=== PATIENT | female | born 1990 | race Caucasian/White ===

== ENCOUNTER 2019-07-13 22:09 | Emergency (ER) | payer SELFPAY ==
[~2019-07-13] VITALS: Ht 170.2 cm; Wt 108.0 kg
[~2019-07-13 22:09] MED LIST: SULF1TAB24 PO
--- NOTE | 2019-07-13 22:27 | PHYS DOC ---
Past History Past Medical History: Anxiety, Arthritis, Bipolar, IBS Past Surgical History: Other Past Surgical History Multiple knee surgery- bilateral Smoking: Cigarettes Alcohol Use: Occasionally Drug Use: Marijuana Adult General Chief Complaint Chief Complaint: ".. I ve had bad knees... since I was 15 .. and had them i njuried... I ve had multiple surgies on them.. I don't have my braces any more.. and they are really brothering me this weekend... "".. sometime it feels like I gat something in the knees .. that cause them to lock.. usually I can work it out..." HPI HPI Patient is a 28 year old female who presents with above hx and complaint of bilateral knee pain and crepitation. Patient presents with her dog Christy. ( Anxiety-partner). Patient gives a history of chronic knee problems due to the trauma and requiring knee multiple knee surgery's. Onset of the knee problems started at age 15. No recent travel. Has recent moved into [facility]. Has been taking ibuprofen for her pain. Patient states she's had marked increase of crepitation and pain in both knees. Patient can do bilateral straight leg lifts. No marked erythema. Mild bilateral edema but no ballottement. Does have crepitation bi lateral or ROM. Has bilateral old surgery scars to knees. Pain to day seemed to be localized to collateral ligaments in both knees. Distal neurovascular intact. Pt. denies any specific recent injury, but state she frequent has pain with over use or on miss step or twisting movements to knees. Pt. denies any fever. Patient denies any immunosuppression. No history of vaginal discharge or dysuria. Review of Systems Review of Systems Constitutional: Denies fever or chills [] Eyes: Denies change in visual acuity, redness, or eye pain [] HENT: Denies nasal congestion or sore throat [] Respiratory: Denies cough or shortness of breath [] Cardiovascular: No additional information not addressed in HPI [] GI: Denies abdominal pain, nausea, vomiting, bloody stools or diarrhea [] : Denies dysuria or hematuria [] Musculoskeletal: Patient complains of bilateral knee pain Integument: Denies rash or skin lesions [] Neurologic: Denies headache, focal weakness or sensory changes [] Endocrine: Denies polyuria or polydipsia [] All other systems were reviewed and found to be within normal limits, except as documented in this note. Family History Family History Noncontributory Current Medications Current Medications See nursing for home medications Allergies Allergies Allergies Coded Allergies Type Severity Reaction Last Updated Verified No Known Drug Allergies 04/07/15 No Physical Exam Physical Exam Constitutional: Mild to moderate acute distress, non-toxic appearance. [] HENT: Normocephalic, atraumatic, bilateral external ears normal, oropharynx moist, no oral exudates, nose normal. Tattoos above left eyebrow Eyes: PERRLA, EOMI, conjunctiva normal, no discharge. [] Neck: Normal range of motion, no tenderness, supple, no stridor. [] Cardiovascular:Heart rate regular rhythm, no murmur [] Lungs & Thorax: Bilateral breath sounds equal at apexes with a few scattered wheezes on auscultation [] Abdomen: Bowel sounds normal, soft, no tenderness, no masses, no pulsatile masses. [] Skin: Warm, dry, no erythema, no rash. []Multiple tattoos. Back: No tenderness, no CVA tenderness. [] Extremities: No tenderness, no cyanosis, no clubbing, ROM intact, no edema. [] Except findings of bilateral knee pain and crepitation as per history of present illness Neurologic: Alert and oriented X 3, moves all extremities on request, distal sensory present, no focal deficits noted. [] Psychologic: Affect very anxious, judgement normal, mood normal. [] EKG EKG [] Radiology/Procedures Radiology/Procedures [][place] [address] IMAGING REPORT Signed PATIENT: ODILIA WILKINSON ACCOUNT: [id number] : 1990 LOCATION: ER AGE: 28 SEX: F EXAM STATUS: PRE ER ORD. PHYSICIAN: KENNETH BAEZA MD REASON: pain, CHRONIC - WORSE TODAY, NO NEW INJURY PROCEDURE: KNEE BILAT 4V EXAM: AP, oblique, lateral and tangential patellar views of both knees DATE: 07/13/2019 10:27 PM INDICATION: pain, CHRONIC - WORSE TODAY, NO NEW INJURY COMPARISON: 12/10/2015 FINDINGS: Right knee: Joint spaces are preserved although tricompartmental osteophytes are seen. No right knee joint effusion. Mild ossification within the distal patellar tendon may be seen with remote [place]-Schlatter's disease. Neutral patellar tracking. Multi partite appearance of the right patella. Left knee: Trace medial compartment joint space narrowing with tricompartmental osteophytes. No knee joint effusion. Neutral patellar tracking. No evidence of acute fracture or dislocation. IMPRESSION: 1. Bilateral knee joint osteoarthritis. 2. No evidence of acute fracture or dislocation. 3. No knee joint effusion. Electronically signed by: Anibal Cooper MD (07/13/2019 11:53 PM) [facility] DICTATED AND SIGNED BY: ANIBAL COOPER MD DATE: 07/13/19 7642 CC: KENNETH BAEZA MD; PCP,GAYE ~ Course & Med Decision Making Course & Med Decision Making Pertinent Labs and Imaging studies reviewed. (See chart for details) Distal Neuro vascular intact post Rodney wraps. Pt. to wear rodney wraps. Take Tylenol and ibuprofen as needed for pain. Use ice as needed next 3 days or after any acute injury. Patient follow-up with orthopedics. May need formal bilateral knee braces for collateral ligament stabilization. May eventually need generalized knee replacement or arthroscopic eval. for fragments causing the knee to lock. Reviewed x-rays with patient from 2015 and x-ray studies tonight. No acute fractures appreciated. Does have small avulsion fracture fragments. Patient must follow-up primary care . . Impression: 1. Bilateral Knee Pain- DJD, -Tricompartmental Osteophytes, Osteoarthritis, Old Avulsion Fx- Fragments 2. Anxiety Disorder 3. Collateral Ligament pain- ? Strain Dragon Disclaimer Dragon Disclaimer This electronic medical record was generated, in whole or in part, using a voice recognition dictation system. Departure Departure: Disposition: 01 HOME/RESIDENCE PRIOR TO ADM Condition: STABLE Referrals: PCP,GAYE (PCP) Bethanie Disclaimer This chart was dictated in whole or in part using Voice Recognition software in a busy, high-work load, and often noisy Emergency Department environment. It may contain unintended and wholly unrecognized errors or omissions. Dragon Disclaimer This chart was dictated in whole or in part using Voice Recognition software in a busy, high-work load, and often noisy Emergency Department environment. It may contain unintended and wholly unrecognized errors or omissions. KENNETH BAEZA MD Jul 13, 2019 22:26
[2019-07-13 22:59] LABS: BARBITURATES NEG (NEG); BENZODIAZEPINES NEG (NEG); CANNABINOIDS NEG (NEG); COCAINE NEG (NEG); METHADONE NEG (NEG); OPIATES NEG (NEG); PHENCYCLIDINE NEG (NEG)
[2019-07-13 23:01] LABS: AMPHETAMINE/METHAMPHETAMINE NEG (NEG)
[2019-07-13 23:08] LABS: BILIRUBIN,URINE NEG (NEG); CLARITY,URINE HAZY; COLOR,URINE YELLOW; GLUCOSE,URINE NEG (NEG)
[2019-07-13 23:09] LABS: BACTERIA,URINE 0 /HPF (0-FEW); NITRITE,URINE NEG (NEG); RBC,URINE OCC /HPF (0-2); SQUAMOUS EPITHELIAL CELL,UR MOD /LPF; UROBILINOGEN,URINE 0.2 mg/dL (0.2 mg/dL); WBC,URINE 0 /HPF (0-4)
[2019-07-13] MEDS ORDERED: KETOROLAC 60 MG/2 ML VIAL. IM ONE (23:15)
[2019-07-13] MEDS ORDERED: cloNIDine TTS-2 1 PATCH PATCH TD ONE (23:45)
[2019-07-13] MEDS ORDERED: cloNIDine HCL 0.1 MG TABLET PO ONE (23:45)
--- NOTE | 2019-07-13 23:56 | RAD ---
EXAM: AP, oblique, lateral and tangential patellar views of both knees DATE: 07/13/2019 10:27 PM INDICATION: pain, CHRONIC - WORSE TODAY, NO NEW INJURY COMPARISON: 12/10/2015 FINDINGS: Right knee: Joint spaces are preserved although tricompartmental osteophytes are seen. No right knee joint effusion. Mild ossification within the distal patellar tendon may be seen with remote [place]-Schlatter's disease. Neutral patellar tracking. Multi partite appearance of the right patella. Left knee: Trace medial compartment joint space narrowing with tricompartmental osteophytes. No knee joint effusion. Neutral patellar tracking. No evidence of acute fracture or dislocation. IMPRESSION: 1. Bilateral knee joint osteoarthritis. 2. No evidence of acute fracture or dislocation. 3. No knee joint effusion. Electronically signed by: Anibal Cooper MD (07/13/2019 11:53 PM) [facility]
[2019-07-14 00:45] VITALS: BP 158/93
== END 2019-07-14 00:30 | disposition home or self-care (01) ==
LOC: ER 22:09
DX: M17.0 Bilateral primary osteoarthritis of knee (principal); M25.762 Osteophyte, left knee; M25.761 Osteophyte, right knee; F41.9 Anxiety disorder, unspecified; F17.210 Nicotine dependence, cigarettes, uncomplicated; Z98.890 Other specified postprocedural states
CPT/HCPCS: 36415; 73564; 80307; 81001; 81025; 96372; 99285; J1885

== ENCOUNTER → 2020-06-08 | Outpatient (CLI) | payer OTHER ==
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
== END ==
LOC: DXRAD 09:30
PROVIDERS: ATTEND Family Medicine
DX: M47.816 Spondylosis without myelopathy or radiculopathy, lumbar region (principal); M48.54XA Collapsed vertebra, not elsewhere classified, thoracic region, initial encounter for fracture; M40.46 Postural lordosis, lumbar region
CPT/HCPCS: 72100

== ENCOUNTER 2020-09-05 21:52 | Emergency (ER) | payer SELFPAY ==
[~2020-09-05] VITALS: Ht 170.2 cm; Wt 103.5 kg
--- NOTE | 2020-09-05 21:54 | PHYS DOC ---
Past History Past Medical History: Anxiety, Arthritis, Bipolar, IBS Additional Past Medical Histor: chronic lower leg weakness and pain-marino Past Surgical History: Other Additional Past Surgical Histo: marino leg surgeries 5 on the rt and 2 on the lt Smoking: Cigarettes Alcohol Use: None Drug Use: None General Adult HPI: HPI: " .. I got a sore throat.. I hurt all over.. My bones hurt... my muscles hurt ... My neck hurts ... My chest hurts ... I hurt all over ....I had some bleeding in my urine.. I am just not right today.." Patient is a 29 year old female who presents with above hx and complaints diffuse body myalgia, arthralgia, malaise, pharyngitis, and hematuria. Patient advises she did not get a flu shot this season. Denies any specific Covid contacts. Patient denies any history of immunosuppression. Patient in the past did IV heroin and other polysubstance abuse. Patient currently smokes marijuana every day for pain relief. Patient does use tobacco. Patient denies any recent trauma. No recent travel outside the [facility]. Does not follow-up with primary care. [id number] meds not helpful for generalized body pain. Denies.Intake bad food. Patient does have a history of IBS. Does have a history of gait disorder because of lower leg weakness in the past. Patient denies HIV or immunosuppression. Patient has an excess of 25 lifetime sex partners. Has had STDs before which were treated. Patient has had d ysfunctional uterine bleeding with very irregular periods. Patient denies history of . No history of kidney stones with her family members. No history of colitis with her family members. Review of Systems: Review of Systems: Constitutional: Denies fever or chills Eyes: Denies change in visual acuity HENT: Complains of sore neck and sore throat Respiratory: History of a nonproductive cough Cardiovascular: History of chest wall pain GI: Complains of generalized abdominal pain, nausea,. Denies vomiting, bloody stools or diarrhea : Denies dysuria Musculoskeletal: Complains of generalized muscle and bone pain Integument: Denies rash Neurologic: Denies headache, focal weakness or sensory changes Endocrine: Denies polyuria or polydipsia Lymphatic: Denies swollen glands Psychiatric: Does have a history of depression and anxiety. No suicidal ideation or homicidal ideation reported. Family History: Family History: Noncontributory to presentation. Current Medications: Current Meds: See nursing for home meds Allergies: Allergies: Allergies Coded Allergies Type Severity Reaction Last Updated Verified No Known Drug Allergies 04/07/15 No Physical Exam: PE: Constitutional: Moderate acute distress, non-toxic appearance. [] HENT: Normocephalic, atraumatic, bilateral external ears normal, oropharynx moist, no oral exudates, nose normal. Tattoo above left eyebrow Eyes: PERRLA, EOMI, conjunctiva normal, no discharge. [] Neck: Normal range of motion, no tenderness, supple, no stridor. [] Cardiovascular: Tachycardia heart rate regular rhythm, no murmur [] Lungs & Thorax: Bilateral breath sounds equal apex with scattered wheezes on auscultation [] Abdomen: Bowel sounds normal, soft, no tenderness, no masses, no pulsatile masses. Distended abd. Skin: Warm, dry, no erythema, no rash. Multiple tattoos Back: No tenderness, no CVA tenderness. [] Extremities: No tenderness, no cyanosis, no clubbing, ROM intact, no edema. [] Neurologic: Alert and oriented X 3, normal motor function, normal sensory function, no focal deficits noted. [] Psychologic: Affect anxious, judgement normal, mood normal. [] EKG: EKG: My interpretation EKG shows a sinus rhythm at 87 bpm there is slightly prolonged MA interval of 212 ms. No findings acute STEMI of contralateral changes. [] Radiology/Procedures: Radiology/Procedures: [][address] [address] IMAGING REPORT Signed PATIENT: ODILIA WILKINSON ACCOUNT: [id number] : 1990 LOCATION: ER AGE: 29 SEX: F EXAM STATUS: REG ER ORD. PHYSICIAN: KENNETH BAEZA MD REASON: Painful urination, abdomen pain, neck soreness PROCEDURE: ACUTE ABDOMEN SERIES Acute Abdominal Series: Technique: PA view of the chest and supine and upright views of the abdomen were obtained. History: Pain. Comparison: None. Findings: The lungs and pleural margins are clear. There is air and stool scattered throughout the colon. There is a paucity small bowel gas. There is no free air. Impression: Nonobstructive bowel gas pattern consistent with constipation. Electronically signed by: Manish Thomas III, MD (09/05/2020 11:09 PM) [facility] DICTATED AND SIGNED BY: MANISH THOMAS III, MD DATE: 09/05/20 8888 CC: KENNETH BAEZA MD; PCP,NO ~MTH0 0 Heart Score: HEART Score for Chest Pain: HEART Score for Chest Pain Response (Comments) Value History Slighlty/Non-Suspicious 0 ECG Normal 0 Age < 45 0 Risk Factors 1 or 2 Risk Factors 1 Troponin >1-<3x Normal Limit 1 Total 2 Risk Factors: Risk Factors: DM, Current or recent (<one month) smoker, HTN, HLP, family history of CAD, obesity. Risk Scores: Score 0 - 3: 2.5% MACE over next 6 weeks - Discharge Home Score 4 - 6: 20.3% MACE over next 6 weeks - Admit for Clinical Observation Score 7 - 10: 72.7% MACE over next 6 weeks - Early Invasive Strategies Course & Med Decision Making: Course & Med Decision Making Pertinent Labs and Imaging studies reviewed. (See chart for details) Patient push fluids. Fish times he drinks. Take Keflex 500 g three times a day. Follow-up urine cultures. Encourage patient to avoid tobacco polysubstance abuse. Patient follow-up primary care. Patient turning concerns. Patient to expect a loose stool by morning with the milk of mag. Consider self-isolation. Wear a mask that covers her nose and mouth anytime away from home. Consider testing for Covid ( currently refuses test). Follow-up pending cultures. Follow-up pending labs. Return if any concerns. Impression: 1. Generalized body pain myalgia, arthralgia 2. Constipation 3. Viral syndrome 4. Tobacco, methamphetamine and marijuana use 5. Mild leukocytosis 11.4 6. Elevated AST 40 7. UTI 8. Viral pharyngitis [] Dragon Disclaimer: Dragon Disclaimer: This electronic medical record was generated, in whole or in part, using a voice recognition dictation system. Departure Departure: Referrals: PCP,GAYE (PCP) Scripts Cephalexin (KEFLEX) 750 Mg Capsule 500 MG PO TID for uti,cystitis for 10 Days, #20 CAP Prov: KENNETH BAEZA MD 09/06/20 Bethanie Disclaimer This chart was dictated in whole or in part using Voice Recognition software in a busy, high-work load, and often noisy Emergency Department environment. It may contain unintended and wholly unrecognized errors or omissions. KENNETH BAEZA MD Sep 05, 2020 21:54
[2020-09-05] MEDS ORDERED: predniSONE 10 MG TABLET PO ONE (22:00)
[2020-09-05] MEDS ORDERED: IV RINGERS SOLUTION,LACTATED 1,000 ML IV SCH (22:45)
[2020-09-05] MEDS ORDERED: FAMOTIDINE 20 MG/2 ML VIAL IVP ONE (22:45)
[2020-09-05] MEDS ORDERED: KETOROLAC 30 MG/ML VIAL. IVP ONE (22:45)
[2020-09-05] MEDS ORDERED: ONDANSETRON PF 4 MG/2 ML VIAL. IVP ONE (22:45)
--- NOTE | 2020-09-05 23:11 | RAD ---
Acute Abdominal Series: Technique: PA view of the chest and supine and upright views of the abdomen were obtained. History: Pain. Comparison: None. Findings: The lungs and pleural margins are clear. There is air and stool scattered throughout the colon. There is a paucity small bowel gas. There is no free air. Impression: Nonobstructive bowel gas pattern consistent with constipation. Electronically signed by: Tristan Jasmine III, MD (09/05/2020 11:09 PM) [facility]
--- NOTE | 2020-09-05 23:16 | EKG ---
[address] [address] Test Date: 2020-09-05 Test Time: 22:49:06 Pat Name: ODILIA WILKINSON Department: Room: Gender: F Timber Deadener: : 1990 Requested By: KENNETH BAEZA Order Number: [id number] Reading MD: Measurements Intervals [place] Rate: 87 P: 34 NM: 212 QRS: 62 QRSD: 96 T: 43 QT: 360 QTc: 434 Interpretive Statements SINUS RHYTHM PROLONGED NM INTERVAL ABNORMAL ECG RI6.02 No previous ECG available for comparison
[2020-09-05 23:30] LABS: BILIRUBIN,URINE NEG (NEG); CLARITY,URINE CLOUDY; COLOR,URINE YELLOW; GLUCOSE,URINE NEG (NEG); UROBILINOGEN,URINE 0.2 mg/dL (0.2 mg/dL)
[2020-09-05 23:31] LABS: AMORPHOUS SEDIMENT,UR PRESENT /HPF; BACTERIA,URINE MOD /HPF (0-FEW); NITRITE,URINE NEG (NEG); RBC,URINE 20-40 /HPF (0-2); SQUAMOUS EPITHELIAL CELL,UR FEW /LPF
[2020-09-05 23:34] LABS: INFLUENZA A PATIENT NEGATIVE (NEGATIVE); INFLUENZA B PATIENT NEGATIVE (NEGATIVE)
[2020-09-05 23:43] LABS: BARBITURATES NEG (NEG); BENZODIAZEPINES NEG (NEG); CANNABINOIDS POS (NEG); COCAINE NEG (NEG); METHADONE NEG (NEG); OPIATES NEG (NEG); PHENCYCLIDINE NEG (NEG)
[2020-09-05 23:47] LABS: AMPHETAMINE/METHAMPHETAMINE POS (NEG)
[2020-09-05 23:52] LABS: CALCIUM 8.9 mg/dL (8.5-10.1); CREATININE 0.7 mg/dL (0.6-1.0); GFR 98.3
[2020-09-05 23:59] LABS: ALBUMIN 3.7 g/dL (3.4-5.0); BASO % 0 % (0-3); C REACTIVE PROTEIN 17.1 mg/L (0-3.3); DIRECT BILIRUBIN 0.2 mg/dL (0.0-0.2); EOS # 0.3 x10^3/uL (0.0-0.7); EOS % 3 % (0-3); HEMATOCRIT 44.3 % (36.0-47.0); LYMPH # 2.5 x10^3/uL (1.0-4.8); LYMPH % 22 % (24-48); MEAN CORPUSCULAR HEMOGLOBIN 30 pg (25-35); MEAN CORPUSCULAR HGB CONC 34 g/dL (31-37); MEAN CORPUSCULAR VOLUME 88 fL (79-100); MONO % 8 % (0-9); NEUT # 7.6 x10^3uL (1.8-7.7); NEUT % 67 % (31-73); PLATELET COUNT 228 x10^3/uL (140-400); RED BLOOD COUNT 5.04 x10^6/uL (3.50-5.40); RED CELL DISTRIBUTION WIDTH 13.5 % (11.5-14.5); TOTAL BILIRUBIN 0.6 mg/dL (0.2-1.0); TOTAL PROTEIN 7.6 g/dL (6.4-8.2); WHITE BLOOD COUNT 11.4 x10^3/uL (4.0-11.0)
[2020-09-06] MEDS ORDERED: MAGNESIUM HYDROXIDE 2,400 MG/30 ML ORAL.SUSP. ONE (00:15)
[2020-09-06] MEDS ORDERED: IV NORMAL SALINE 50ML 50 ML ONE (00:15)
[2020-09-06] MEDS ORDERED: MAGNESIUM HYDROXIDE 2,400 MG/30 ML ORAL.SUSP. PO ONE (00:15)
[2020-09-06] MEDS ORDERED: cefTRIAXone SODIUM 1 GM VIAL ONE (00:16)
[2020-09-06] MEDS ORDERED: CEPH750C9 PO (00:17)
[2020-09-06 00:20] VITALS: BP 148/90
== END 2020-09-06 00:30 | disposition home or self-care (01) ==
LOC: ER 21:52
DX: N39.0 Urinary tract infection, site not specified (principal); J02.8 Acute pharyngitis due to other specified organisms; K59.00 Constipation, unspecified; R10.84 Generalized abdominal pain; B34.9 Viral infection, unspecified; R79.89 Other specified abnormal findings of blood chemistry; F12.90 Cannabis use, unspecified, uncomplicated; F41.9 Anxiety disorder, unspecified; M19.90 Unspecified osteoarthritis, unspecified site; F31.9 Bipolar disorder, unspecified; F17.210 Nicotine dependence, cigarettes, uncomplicated; Z98.890 Other specified postprocedural states
CPT/HCPCS: 36415; 74022; 80048; 80076; 80307; 81001; 82150; 82550; 83690; 84484; 85025; 85610; 85730; 86140; 87070; 87086; 87491; 87591; 87804; 87880; 93005; 96361; 96374; 96375; 99285; J0696; J1885; J2405; J3490; J7120; J7512

== ENCOUNTER 2021-03-03 02:48 | Emergency (ER) | payer SELFPAY ==
[~2021-03-03] VITALS: Ht 170.2 cm; Wt 99.8 kg
[~2021-03-03 02:48] MED LIST changes: +CEPH750C9 PO
[2021-03-03] MEDS ORDERED: CEPH500C PO (03:14)
--- NOTE | 2021-03-03 03:15 | PHYS DOC ---
Past History Past Medical History: Anxiety, Arthritis, Bipolar, Hypertension, IBS Additional Past Medical Histor: chronic lower leg weakness and pain-marino Past Medical History PCOS Past Surgical History: Other Additional Past Surgical Histo: marino leg surgeries 5 on the rt and 2 on the lt Smoking: Cigarettes Alcohol Use: None Drug Use: Opiates General Adult EDM: Chief Complaint: DRUG ABUSE HPI: HPI: Patient is a [age] year old [sex] who presents with [] Review of Systems: Review of Systems: Constitutional: Denies fever or chills Eyes: Denies change in visual acuity HENT: Denies nasal congestion or sore throat Respiratory: Denies cough or shortness of breath Cardiovascular: Denies chest pain or edema GI: Denies abdominal pain, nausea, vomiting, bloody stools or diarrhea : Denies dysuria Musculoskeletal: Denies back pain or joint pain Integument: Denies rash Neurologic: Denies headache, focal weakness or sensory changes Endocrine: Denies polyuria or polydipsia Lymphatic: Denies swollen glands Psychiatric: Denies depression or anxiety Allergies: Allergies: Allergies Coded Allergies Type Severity Reaction Last Updated Verified No Known Drug Allergies 04/07/15 No Physical Exam: PE: Constitutional: Well developed, well nourished, no acute distress, non-toxic appearance. [] HENT: Normocephalic, atraumatic, bilateral external ears normal, oropharynx moist, no oral exudates, nose normal. [] Eyes: PERRLA, EOMI, conjunctiva normal, no discharge. [] Neck: Normal range of motion, no tenderness, supple, no stridor. [] Cardiovascular:Heart rate regular rhythm, no murmur [] Lungs & Thorax: Bilateral breath sounds clear to auscultation [] Abdomen: Bowel sounds normal, soft, no tenderness, no masses, no pulsatile masses. [] Skin: Warm, dry, no erythema, no rash. [] Back: No tenderness, no CVA tenderness. [] Extremities: No tenderness, no cyanosis, no clubbing, ROM intact, no edema. [] Neurologic: Alert and oriented X 3, normal motor function, normal sensory function, no focal deficits noted. [] Psychologic: Affect normal, judgement normal, mood normal. [] Current Patient Data: Vital Signs: Vital Signs Date Time Temp Pulse Resp B/P (MAP) Pulse Ox O2 Delivery O2 Flow Rate FiO2 7/21/21 02:51 98.5 90 20 171/122 (138) 100 Room Air EKG: EKG: [] Radiology/Procedures: Radiology/Procedures: [] Heart Score: Risk Factors: Risk Factors: DM, Current or recent (<one month) smoker, HTN, HLP, family history of CAD, obesity. Risk Scores: Score 0 - 3: 2.5% MACE over next 6 weeks - Discharge Home Score 4 - 6: 20.3% MACE over next 6 weeks - Admit for Clinical Observation Score 7 - 10: 72.7% MACE over next 6 weeks - Early Invasive Strategies Course & Med Decision Making: Course & Med Decision Making Pertinent Labs and Imaging studies reviewed. (See chart for details) [] Dragon Disclaimer: Dragon Disclaimer: This electronic medical record was generated, in whole or in part, using a voice recognition dictation system. Departure Departure: Impression: Primary Impression: Heroin abuse Additional Impression: Injection site extravasation Qualified Codes: T80.818A - Extravasation of other vesicant agent, initial encounter Disposition: HOME / SELF CARE / HOMELESS Condition: STABLE Referrals: PCP,NO (PCP) Patient Instructions: Alcohol and Drug Addiction, Finding Treatment, Drug Abuse, FAQs, Elastic Bandage and RICE, Infiltration, IV, [id number] Additional Instructions: Clean wound daily with soap and water. Change dressing 2 times daily. Use over the counter antibiotic ointment with each dressing change. Use over the count er Tylenol and/or Ibuprofen for pain or discomfort. Ice area 20 minutes on then leave off next 20 minutes. May repeat several times daily for the next few days. Take antibiotics prescribed to completion. Scripts Cephalexin (CEPHALEXIN) 500 Mg Capsule 1 CAP PO TID for Cellulitis for 7 Days, #21 CAP Prov: NICHO AUGUSTE DO 03/03/21 NICHO AUGUSTE DO Mar 03, 2021 03:15
[2021-03-03 03:16] VITALS: BP 172/107
[2021-03-03] MEDS ORDERED: NEOMY/BACITR/POLYMYXIN OINT PACKET. TP ONE (03:30)
[2021-03-03] MEDS ORDERED: CEPHALEXIN 250 MG CAPSULE PO ONE (03:30)
== END 2021-03-03 03:32 | disposition home or self-care (01) ==
LOC: ER 02:48
DX: T80.818A Extravasation of other vesicant agent, initial encounter (principal); F11.10 Opioid abuse, uncomplicated; F41.9 Anxiety disorder, unspecified; M19.90 Unspecified osteoarthritis, unspecified site; F31.9 Bipolar disorder, unspecified; I10 Essential (primary) hypertension; K58.9 Irritable bowel syndrome, unspecified; F17.210 Nicotine dependence, cigarettes, uncomplicated
CPT/HCPCS: 99283

== ENCOUNTER 2021-06-05 19:47 | Inpatient (IN) | payer SELFPAY ==
[~2021-06-05] VITALS: Ht 170.2 cm; Wt 94.0 kg
[~2021-06-05 19:47] MED LIST changes: +CEPH500C PO
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
[2021-06-05] MEDS ORDERED: VANCOMYCIN 1 GM in IV NORMAL SALINE 250ML 250 ML IV ONE (22:15)
--- NOTE | 2021-06-05 22:47 | RAD ---
EXAM: AP and lateral views left forearm DATE: 06/05/2021 10:19 PM INDICATION: Reason: cellulitis , hx of iv drug use / Spl. Instructions: Pt shielded / History: . COMPARISON: No Prior FINDINGS/ IMPRESSION: Marked soft tissue swelling about the left forearm and elbow without acute fracture or dislocation. N o definite retained radiopaque body. Electronically signed by: Anibal Cooper MD (06/05/2021 10:45 PM) EMI
--- NOTE | 2021-06-05 22:58 | EKG ---
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
[2021-06-05] MEDS ORDERED: MORPHINE SULFATE 10 MG/ML SYRINGE. SQ ONE (23:00)
[2021-06-05] MEDS ORDERED: VANCOMYCIN 2 GM in IV NORMAL SALINE 500ML 500 ML IV ONE (23:00)
[2021-06-05] MEDS ORDERED: IV RINGERS SOLUTION,LACTATED 1,000 ML IV SCH (23:00)
[2021-06-05] MEDS ORDERED: DIPH,PERTUSS(ACELL),TET VAC/PF 0.5 ML SYRINGE. VAX IM ONE (23:00)
[2021-06-05] MEDS ORDERED: cefTRIAXone IM 1 GM VIAL IM ONE (23:00)
[2021-06-05] MEDS ORDERED: ACETAMINOPHEN 500 MG TABLET PO ONE (23:00)
[2021-06-05 23:28] LABS: BARBITURATES NEG (NEG); BENZODIAZEPINES NEG (NEG); CANNABINOIDS POS (NEG); COCAINE NEG (NEG); METHADONE NEG (NEG); OPIATES POS (NEG); PHENCYCLIDINE NEG (NEG)
[2021-06-05 23:32] LABS: AMPHETAMINE/METHAMPHETAMINE POS (NEG)
[2021-06-05 23:34] LABS: BILIRUBIN,URINE SMALL (NEG); CLARITY,URINE CLEAR; COLOR,URINE YELLOW; GLUCOSE,URINE NEG (NEG); NITRITE,URINE NEG (NEG); UROBILINOGEN,URINE 0.2 mg/dL (0.2 mg/dL)
[2021-06-05 23:35] LABS: BACTERIA,URINE 0 /HPF (0-FEW); RBC,URINE 0 /HPF (0-2); SQUAMOUS EPITHELIAL CELL,UR FEW /LPF; WBC,URINE OCC /HPF (0-4)
[2021-06-06 00:33] LABS: BASO % 0 % (0-3); EOS # 0.1 x10^3/uL (0.0-0.7); EOS % 1 % (0-3); HEMATOCRIT 41.6 % (36.0-47.0); HEMOGLOBIN 14.1 g/dL (12.0-15.5); LYMPH % 14 % (24-48); MEAN CORPUSCULAR HEMOGLOBIN 28 pg (25-35); MEAN CORPUSCULAR HGB CONC 34 g/dL (31-37); MEAN CORPUSCULAR VOLUME 82 fL (79-100); MONO # 1.3 x10^3/uL (0.0-1.1); MONO % 9 % (0-9); NEUT # 11.1 x10^3uL (1.8-7.7); NEUT % 77 % (31-73); PLATELET COUNT 262 x10^3/uL (140-400); RED BLOOD COUNT 5.09 x10^6/uL (3.50-5.40); RED CELL DISTRIBUTION WIDTH 13.9 % (11.5-14.5); WHITE BLOOD COUNT 14.5 x10^3/uL (4.0-11.0)
[2021-06-06 00:42] LABS: CALCIUM 9.3 mg/dL (8.5-10.1); CREATININE 0.6 mg/dL (0.6-1.0); GFR 116.6; POTASSIUM 3.7 mmol/L (3.5-5.1)
[2021-06-06 00:54] LABS: ALBUMIN 3.5 g/dL (3.4-5.0); C REACTIVE PROTEIN 43.7 mg/L (0-3.3); DIRECT BILIRUBIN 0.2 mg/dL (0.0-0.2); TOTAL BILIRUBIN 0.7 mg/dL (0.2-1.0); TOTAL PROTEIN 7.8 g/dL (6.4-8.2)
[2021-06-06] MEDS ORDERED: MORPHINE SULFATE 10 MG/ML SYRINGE. SQ PRN (01:45)
[2021-06-06] MEDS ORDERED: ONDANSETRON PF 4 MG/2 ML VIAL. IVP PRN (01:45)
[2021-06-06] MEDS ORDERED: ACETAMINOPHEN 325 MG TABLET PO PRN (01:45)
[2021-06-06] MEDS ORDERED: VANCOMYCIN PER PHARMACY MC PRN (01:45)
--- NOTE | 2021-06-06 02:04 | NUR ---
The patient, ODILIA SHARMA, 30 y/o, F admitted by KIRA DRAKE MD, was given written information regarding hospital policies, unit procedures and contact persons. Valuables were checked and left with patient. 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
[2021-06-06 02:09] VITALS: BP 135/87
[2021-06-06] MEDS: IV RINGERS SOLUTION,LACTATED 1,000 ML IV SCH ×3 (02:18→15:44)
--- NOTE | 2021-06-06 03:46 | NUR ---
Pharmacy Vancomycin Dosing Note S:Consulted to monitor and dose vancomycin started 06/06/21. O:ODILIA SHARMA is a 30 year old F with Cellulitis, . Height: 5 feet, 7 inches Weight: 94.0 kg Dawson Body Weight: 61.60 Adjusted Body Weight: 74.56 Dosing Weight: Actual Other Antibiotics: CEFTRIAXONE 1 GM BID LABS: Last BUN: 9 Last Creatinine: 0.6 Creatinine Clearance: 159 Last WBC: 14.5 Last Procalcitonin: Tmax (past 24 hours): Microbiology: I/O: Drug Levels: Last level: on at Last dose given 06/06/21 at 0200 Vancomycin Dosing: Loading Dose: 2000 mg x1 Dosing Weight: Actual Target Trough: 10-20 A: Based on: WT AND CRCL P: 1. Begin Vancomycin 1250 mg IV q8h 2. Follow up Trough level on 06/07/21 at 0130 3. Pharmacy will continue to monitor, follow and adjust therapy as needed. DAPHNE AKERS RPH, 06/06/21 0346 Signed: 06/06/21 at 034 by DAPHNE AKERS RPH PHA
[2021-06-06] MEDS: IPRATRPIUM/ALBUTEROL 0.5/2.5MG 3 ML NEBU. NEB SCH ×4 (04:41→16:41)
[2021-06-06 06:37] VITALS: BP 127/84
[2021-06-06] MEDS: KETOROLAC 30 MG/ML VIAL. IVP SCH ×2 (08:24→14:40)
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
[2021-06-06] MEDS ORDERED: cefTRIAXone IM 1 GM VIAL IM SCH (09:00)
[2021-06-06] MEDS ORDERED: VANCOMYCIN 1 GM in IV NORMAL SALINE 250ML 250 ML IV SCH (09:00)
[2021-06-06] MEDS: MORPHINE SULFATE 4 MG/ML DISP.SYRIN. IV PRN ×2 (09:55→15:45)
[2021-06-06] MEDS ORDERED: VANCOMYCIN 1.25 GM in IV NORMAL SALINE 250ML 250 ML IV SCH ×2 (10:00→21:00)
[2021-06-06 13:03] VITALS: BP 131/85
[2021-06-06 15:36] VITALS: BP 119/78
[2021-06-06] MEDS ORDERED: LACTOBACILLUS RHAMNOSUS GG 1 CAPSULE. PO SCH (21:00)
--- NOTE | 2021-06-07 08:48 | DS ---
DATE OF DISCHARGE: 06/06/2021 ATTENDING PHYSICIAN: Dr. Metzger. FINAL DISCHARGE DIAGNOSES: 1. Cellulitis, left forearm. 2. Underlying intravenous drug use, which introduced a source of infection, most likely Staphylococcus. 3. Underlying depression with bipolar disorder. 4. Polysubstance abuse. 5. Noncompliance of medications. HISTORY AND PHYSICAL: The patient is a 30-year-old female, polysubstance abuse, drug user. She was shooting up heroin, she developed an infection in the extensor surface of the left forearm. This was incised and drained in the ED with expression of michael pus. She was admitted for further treatment and evaluation and antibiotic therapy. PHYSICAL EXAMINATION: Please see the dictated note. PERTINENT LABORATORY AND X-RAY STUDIES: Numerous on the database. Microbiology and blood cultures were negative after 24 hours. COURSE IN THE HOSPITAL: She was admitted. She was started on vancomycin and clindamycin. Pain control was ordered with morphine. The patient was initially admitted. I saw her in the morning of 06/06/2021. Later in the afternoon, the patient was unhappy with her care here. She wanted more pain meds. She left against medical advice. I notified the ER that we would not admit her should she show up again because she is abusing the system. Therefore, the patient left the hospital against medical advice after I had seen her and admitted her. SEAN/MO OVIEDO: Tiffanie TID: [id number]
== END 2021-06-06 19:15 | disposition left against medical advice (07) | DRG 603 ==
LOC: ER 19:47 → 1 SOUTH 06-06 01:32 → ER 06-06 01:50
PROVIDERS: ADMIT Hospitalist; ATTEND Hospitalist
PROC: 0H9DXZZ Drainage of Right Lower Arm Skin, External Approach (ICD-10-PCS; principal; 2021-06-05)
DX: L02.414 Cutaneous abscess of left upper limb (principal); F31.9 Bipolar disorder, unspecified; I10 Essential (primary) hypertension; F17.210 Nicotine dependence, cigarettes, uncomplicated; F11.90 Opioid use, unspecified, uncomplicated; L03.114 Cellulitis of left upper limb; F41.9 Anxiety disorder, unspecified; K58.9 Irritable bowel syndrome, unspecified; Z20.822 Contact with and (suspected) exposure to COVID-19; M19.90 Unspecified osteoarthritis, unspecified site; Z53.29 Procedure and treatment not carried out because of patient's decision for other reasons; J44.9 Chronic obstructive pulmonary disease, unspecified; Z91.14 Patient's other noncompliance with medication regimen
CPT/HCPCS: 36415; 73090; 80048; 80076; 80307; 81001; 81025; 82550; 83880; 84443; 84484; 84702; 85025; 86140; 86900; 86901; 87040; 87077; 87205; 87426; 90471; 90715; 93005; 94640; 94760; 96360; 96372; 99406; J0696; J1885; J2270; J3370; J3490; J7040; J7050; J7120; U0003; 99285-25